=== PATIENT | male | born 1960 | race Caucasian/White ===

== ENCOUNTER 2017-04-23 15:27 | Emergency (ER) | payer SELFPAY ==
[~2017-04-23] VITALS: Ht 193 cm; Wt 150.0 kg
[~2017-04-23 15:27] MED LIST: LISI-363 PO
[2017-04-23 15:31] VITALS: BP 186/109; PULSE 112; RESP 24; TEMP 97.8; O2SAT 97
[2017-04-23] MEDS ORDERED: SODIUM CHLOR 0.9% 1000 ML INJ 1,000 ML IV SCH (16:00)
[2017-04-23] MEDS ORDERED: MORPHINE SULFATE 4 MG/ML INJ IV ONE (16:00)
[2017-04-23] MEDS ORDERED: ONDANSETRON HCL 4 MG/2 ML VIAL IVP ONE (16:00)
[2017-04-23] MEDS ORDERED: SODIUM CHLORIDE 0.9% FLUSH 10 ML FLUSH IVF PRN (16:00)
--- NOTE | 2017-04-23 16:16 | PD ---
HPI Chief Complaint: Fall Time Seen by Provider: 15:54 Travel History International Travel<30 days: No Contact w/Intl Traveler<30days: No Traveled to known affect area: No History of Present Illness HPI The patient is a 57-year-old male who presents to the emergency department after a fall. The patient states he fell this morning approximately 6 AM through a wooden walking apparatus that apparently was covering some type of hole. The patient fell in a hole, he estimates it to be 6 feet deep. The patient was able to crawl out of the hole this morning and went back to investigate later, thinks it was approximate 6 feet deep. The patient complains of a large abrasion to the right flank, anterior right abdominal pain , bruising over the right hip and lower back. He denies any loss of consciousness during the fall and denies any head injury, headache, neck pain, chest pain, or shortness of breath. The pain is worse with walking and with movement. Symptoms are moderate, exacerbated after falling, and there are no current alleviating factors. The patient states his tetanus shot is up-to-date. [facility] Past Medical History Anxiety: Yes Diminished Hearing: No Hypertension: Yes Past Surgical History Other Surgery: Yes (hernia) Social History Alcohol Use: Yes (1/2 gallon vodka daily) Tobacco Use: No Substance Use: No Allergies-Medications (Allergen,Severity, Reaction): Coded Allergies: penicillin G (Unverified Allergy, Severe, Hives, 03/30/17) fever hydrocodone (Unverified Allergy, Intermediate, Itching, 03/30/17) tachycardia Reported Meds & Prescriptions Reported Meds & Active Scripts Active Reported Lisinopril 20 mg (Lisinopril) 20 Mg Tab 1 Tab PO DAILY Review of Systems Except as stated in HPI: all other systems reviewed are Neg General / Constitutional: No: Fever HENT: No: Headaches, Neck Pain Cardiovascular: No: Chest Pain or Discomfort Respiratory: No: Shortness of Breath Gastrointestinal: Positive: Abdominal Pain, No: Nausea, Vomiting Musculoskeletal: Positive: Limited ROM, Pain Neurologic: No: Change in Mentation Physical Exam Narrative GENERAL: Awake, alert, pleasant 57-year-old male who appears his stated age and is in no acute respiratory distress. SKIN: Focused skin assessment warm/dry. HEAD: Atraumatic. Normocephalic. EYES: Pupils equal and round. No scleral icterus. No injection or drainage. ENT: No nasal bleeding or discharge. Mucous membranes pink and moist. NECK: Trachea midline. No JVD. No tenderness of the cervical vertebrae. CARDIOVASCULAR: Regular rate and rhythm. No murmur appreciated. RESPIRATORY: No accessory muscle use. Clear to auscultation. Breath sounds equal bilaterally. GASTROINTESTINAL: Abdomen soft, tender to palpation of the anterior abdominal wall and right upper quadrant as well as abrasions noted over the lateral right flank which are tender to palpation. MUSCULOSKELETAL: Ecchymosis noted over the lateral right hip and buttock. Patient is able flex the hips and knees bilaterally. Full range of motion of upper extremities. Back: No tenderness over the thoracic or lumbar vertebrae, tenderness of the right sacroiliac and right gluteal region. NEUROLOGICAL: Awake and alert. No obvious cranial nerve deficits. Motor grossly within normal limits. Normal speech. Nonfocal. PSYCHIATRIC: Appropriate mood and affect; insight and judgment normal. Data Data Last Documented VS Vital Signs Date Time Temp Pulse Resp B/P (MAP) Pulse Ox O2 Delivery O2 Flow Rate FiO2 04/23/17 15:31 97.8 112 24 186/109 (134) 97 Room Air Orders Orders Complete Blood Count With Diff (04/23/17 16:00) Urinalysis - C+S If Indicated (04/23/17 16:00) Chest, Single Ap (04/23/17 16:00) Pelvis, Ap Only (Routine) (04/23/17 16:00) Ct Abd/Pel W Iv Contrast(Rout) (04/23/17 16:00) Iv Access Insert/Monitor (04/23/17 16:00) Ecg Monitoring (04/23/17 16:00) Oximetry (04/23/17 16:00) Oxygen Administration (04/23/17 16:00) Morphine Inj (Morphine Inj) (04/23/17 16:00) Ondansetron Inj (Zofran Inj) (04/23/17 16:00) Sodium Chloride 0.9% Flush (Ns Flush) (04/23/17 16:00) Comprehensive Metabolic Panel (04/23/17 16:00) Sodium Chlor 0.9% 1000 Ml Inj (Ns 1000 M (04/23/17 16:00) Labs Laboratory Tests Test 04/23/17 16:10 White Blood Count 8.0 TH/MM3 Red Blood Count 3.94 MIL/MM3 Hemoglobin 13.9 GM/DL Hematocrit 40.0 % Mean Corpuscular Volume 101.7 FL Mean Corpuscular Hemoglobin 35.3 PG Mean Corpuscular Hemoglobin Concent 34.7 % Red Cell Distribution Width 17.3 % Platelet Count 193 TH/MM3 Mean Platelet Volume 6.9 FL Neutrophils (%) (Auto) 67.6 % Lymphocytes (%) (Auto) 16.7 % Monocytes (%) (Auto) 9.2 % Eosinophils (%) (Auto) 5.2 % Basophils (%) (Auto) 1.3 % Neutrophils # (Auto) 5.4 TH/MM3 Lymphocytes # (Auto) 1.3 TH/MM3 Monocytes # (Auto) 0.7 TH/MM3 Eosinophils # (Auto) 0.4 TH/MM3 Basophils # (Auto) 0.1 TH/MM3 CBC Comment DIFF FINAL Differential Comment Urine Color YELLOW Urine Turbidity CLEAR Urine pH 6.5 Urine Specific [place] 1.014 Urine Protein TRACE mg/dL Urine Glucose (UA) NEG mg/dL Urine Ketones NEG mg/dL Urine Occult Blood NEG Urine Nitrite NEG Urine Bilirubin NEG Urine Urobilinogen 2.0 MG/DL Urine Leukocyte Esterase NEG Urine RBC LESS THAN 1 /hpf Urine WBC 1 /hpf Urine Squamous Epithelial Cells <1 /hpf Urine Mucus FEW /lpf Microscopic Urinalysis Comment CULT NOT INDICATED MDM Medical Decision Making Medical Screen Exam Complete: Yes Emergency Medical Condition: Yes Medical Record Reviewed: Yes Differential Diagnosis Differential diagnosis includes fracture, contusion, hematoma, hepatic injury, mechanical fall, pelvic fracture, pelvic fracture, abrasion. Narrative Course IV was established, labs are drawn and sent, and the patient was placed on cardiac telemetry monitoring and continuous pulse oximetry monitoring. Chest x- ray and pelvis x-ray were obtained. CT of the abdomen and pelvis with IV contrast was ordered. The patient was administered morphine, Zofran, and IV fluids. The patient was signed out to the oncoming physician at 5 PM, Dr. Lucas. Condition: Stable Juventino Abernathy MD Apr 23, 2017 16:15
[2017-04-23 16:36] LABS: AUTOMATED NEUTROPHIL # 5.4 TH/MM3 (1.8-7.7); BASOPHIL # 0.1 TH/MM3 (0-0.2); BASOPHIL % 1.3 % (0.0-2.0); EOSINOPHIL # 0.4 TH/MM3 (0-0.4); EOSINOPHIL % 5.2 % (0.0-4.0); HEMO FLAGS DIFF FINAL; LYMPH % 16.7 % (9.0-44.0); LYMPHOCYTE # 1.3 TH/MM3 (1.0-4.8); MEAN CELL VOLUME 101.7 FL (80.0-100.0); MEAN CORPUSCULAR HEMOGLOBIN 35.3 PG (27.0-34.0); MEAN CORPUSCULAR HGB CONC 34.7 % (32.0-36.0); MONO % 9.2 % (0.0-8.0); NEUT % 67.6 % (16.0-70.0); PLATELET COUNT 193 TH/MM3 (150-450); RED BLOOD COUNT 3.94 MIL/MM3 (4.50-5.90); RED CELL DISTRIBUTION WIDTH 17.3 % (11.6-17.2)
[2017-04-23 16:37] LABS: BLOOD, URINE NEG (NEG); GLUCOSE,URINE NEG (NEG); KETONE, URINE NEG (NEG); MUCUS URINE FEW /lpf (OCC); NITRITE,URINE NEG (NEG); PH, URINE 6.5 (5.0-8.5); SQUAMOUS EPITHELIAL CELL URINE <1 /hpf (0-5); URINE COLOR YELLOW (YELLW/STRAW)
[2017-04-23 16:38] LABS: COMMENT (UR) CULT NOT INDICATED; CULTURE IF INDICATED CULT NOT INDICATED
[2017-04-23 16:40] VITALS: O2SAT 100
[2017-04-23 16:59] LABS: ALKALINE PHOSPHATASE 115 U/L (45-117); ALT (GPT) 196 U/L (12-78); ANION GAP 13 MEQ/L (5-15); AST (GOT) 242 U/L (15-37); BICARBONATE 23.9 MEQ/L (21.0-32.0); BLOOD UREA NITROGEN 9 MG/DL (7-18); CHLORIDE 100 MEQ/L (98-107); GLOMERULAR FILTRATION RATE 64 ML/MIN (>89); SODIUM (NA) 137 MEQ/L (136-145); TOTAL BILIRUBIN ADULT 1.5 MG/DL (0.2-1.0)
--- NOTE | 2017-04-23 17:00 | RADRPT ---
EXAM DATE/TIME: 04/23/2017 16:38 [facility] COMPARISON: No previous studies available for comparison. INDICATIONS : Chest pain after fall today. MEDICAL HISTORY : Hypertension. SURGICAL HISTORY : None. ENCOUNTER: Initial ACUITY: 1 day PAIN SCORE: 5/10 LOCATION: Bilateral chest FINDINGS: Single AP view of the chest. The lungs are clear. Cardiomediastinal silhouette within normal limits. No evidence of pleural effusion or pneumothorax. CONCLUSION: No acute cardiopulmonary disease identified. Jose Arana MD on April 23, 2017 at 16:57 Board Certified Radiologist. This report was verified electronically.
--- NOTE | 2017-04-23 17:01 | RADRPT ---
EXAM DATE/TIME: 04/23/2017 16:42 [facility] COMPARISON: No previous studies available for comparison. INDICATIONS : Hip pain after fall today. MEDICAL HISTORY : None. SURGICAL HISTORY : None. ENCOUNTER: Initial ACUITY: 1 day PAIN SCORE: 10/10 LOCATION: Bilateral pelvis. FINDINGS: Single AP view of the pelvis. Small osteophytes of the hips. Bone alignment within normal limits. No evidence of fracture. CONCLUSION: No evidence of fracture. Jose Arana MD on April 23, 2017 at 16:58 Board Certified Radiologist. This report was verified electronically.
[2017-04-23 17:27] LABS: POTASSIUM 2.9 MEQ/L (3.5-5.1)
[2017-04-23] MEDS ORDERED: POTASSIUM CHLORIDE 20 MEQ CONTROLLED RELEASE TAB PO ONE (18:00)
[2017-04-23] MEDS ORDERED: IOHEXOL 350 MG/ML 10 ML VIAL (for RAD DIAG) IVCONTRAST ONE (18:10)
--- NOTE | 2017-04-23 18:25 | PD ---
Data Data Last Documented VS Vital Signs Date Time Temp Pulse Resp B/P (MAP) Pulse Ox O2 Delivery O2 Flow Rate FiO2 04/23/17 18:52 04/23/17 16:40 100 04/23/17 15:31 97.8 112 24 Room Air Orders Orders Complete Blood Count With Diff (04/23/17 16:00) Urinalysis - C+S If Indicated (04/23/17 16:00) Chest, Single Ap (04/23/17 16:00) Pelvis, Ap Only (Routine) (04/23/17 16:00) Ct Abd/Pel W Iv Contrast(Rout) (04/23/17 16:00) Iv Access Insert/Monitor (04/23/17 16:00) Ecg Monitoring (04/23/17 16:00) Oximetry (04/23/17 16:00) Oxygen Administration (04/23/17 16:00) Morphine Inj (Morphine Inj) (04/23/17 16:00) Ondansetron Inj (Zofran Inj) (04/23/17 16:00) Sodium Chloride 0.9% Flush (Ns Flush) (04/23/17 16:00) Comprehensive Metabolic Panel (04/23/17 16:00) Sodium Chlor 0.9% 1000 Ml Inj (Ns 1000 M (04/23/17 16:00) Potassium Chloride (Kcl) (04/23/17 18:00) Iohexol 350 Inj (Omnipaque 350 Inj) (04/23/17 18:10) Labs Laboratory Tests Test 04/23/17 16:10 White Blood Count 8.0 TH/MM3 Red Blood Count 3.94 MIL/MM3 Hemoglobin 13.9 GM/DL Hematocrit 40.0 % Mean Corpuscular Volume 101.7 FL Mean Corpuscular Hemoglobin 35.3 PG Mean Corpuscular Hemoglobin Concent 34.7 % Red Cell Distribution Width 17.3 % Platelet Count 193 TH/MM3 Mean Platelet Volume 6.9 FL Neutrophils (%) (Auto) 67.6 % Lymphocytes (%) (Auto) 16.7 % Monocytes (%) (Auto) 9.2 % Eosinophils (%) (Auto) 5.2 % Basophils (%) (Auto) 1.3 % Neutrophils # (Auto) 5.4 TH/MM3 Lymphocytes # (Auto) 1.3 TH/MM3 Monocytes # (Auto) 0.7 TH/MM3 Eosinophils # (Auto) 0.4 TH/MM3 Basophils # (Auto) 0.1 TH/MM3 CBC Comment DIFF FINAL Differential Comment Urine Color YELLOW Urine Turbidity CLEAR Urine pH 6.5 Urine Specific Orange 1.014 Urine Protein TRACE mg/dL Urine Glucose (UA) NEG mg/dL Urine Ketones NEG mg/dL Urine Occult Blood NEG Urine Nitrite NEG Urine Bilirubin NEG Urine Urobilinogen 2.0 MG/DL Urine Leukocyte Esterase NEG Urine RBC LESS THAN 1 /hpf Urine WBC 1 /hpf Urine Squamous Epithelial Cells <1 /hpf Urine Mucus FEW /lpf Microscopic Urinalysis Comment CULT NOT INDICATED Blood Urea Nitrogen 9 MG/DL Creatinine 1.17 MG/DL Random Glucose 124 MG/DL Total Protein 7.6 GM/DL Albumin 3.1 GM/DL Calcium Level 8.5 MG/DL Alkaline Phosphatase 115 U/L Aspartate Amino Transf (AST/SGOT) 242 U/L Alanine Aminotransferase (ALT/SGPT) 196 U/L Total Bilirubin 1.5 MG/DL Sodium Level 137 MEQ/L Potassium Level 2.9 MEQ/L Chloride Level 100 MEQ/L Carbon Dioxide Level 23.9 MEQ/L Anion Gap 13 MEQ/L Estimat Glomerular Filtration Rate 64 ML/MIN [facility] Medical Record Reviewed: Yes Supervised Visit with NASRIN: No Narrative Course CBC & BMP Diagram 04/23/17 16:10 Total Protein 7.6, Albumin 3.1 L, Calcium Level 8.5, Alkaline Phosphatase 115, Aspartate Amino Transf (AST/SGOT) 242 H, Alanine Aminotransferase (ALT/SGPT) 196 H, Total Bilirubin 1.5 H UA: no UTI, no hematuria CXR: No traumatic injury PXR: No traumatic injury Last 24 hours Impressions Pelvis X-Ray 04/23/17 1600 Signed Impressions: Service Date/Time: Sunday, April 23, 2017 16:42 - CONCLUSION: No evidence of fracture. Jose Arana MD Chest X-Ray 04/23/17 1600 Signed Impressions: Service Date/Time: Sunday, April 23, 2017 16:38 - CONCLUSION: No acute cardiopulmonary disease identified. Jose Arana MD Abdomen/Pelvis CT 04/23/17 1600 Signed Impressions: Service Date/Time: Sunday, April 23, 2017 17:52 - CONCLUSION: 1. Severe hepatic steatosis. 2. Colonic diverticulosis. 3. No acute findings identified. Jose Arana MD Please refer to outgoing provider documentation. Pt found resting comfortably at time of reassessment. No evidence intraabdominal trauma. Transaminitis c/w fatty and alcoholic steatohepatitis. Diet and lifestyle modification discussed. Oral potassium provided. Diagnosis Primary Impression: Steatohepatitis Additional Impressions: Fall Qualified Codes: W19.XXXA - Unspecified fall, initial encounter Hypokalemia Referrals: Primary Care Physician 2 days Additional Instruction: You have a choice when it comes to health care, and we are glad that you chose [facility]. Hopefully, we have met your expectations on today's visit. You are welcome to return to [facility] at any time, as we are committed to meeting the health care needs of our community. Med/Other Pt SpecificInfo: No Change to Meds Disposition: 01 DISCHARGE HOME Condition: Stable Justen Lucas MD Apr 23, 2017 18:25
--- NOTE | 2017-04-23 18:26 | RADRPT ---
EXAM DATE/TIME: 04/23/2017 17:52 [facility] COMPARISON: No previous studies available for comparison. INDICATIONS : Abdominal pain after falling. IV CONTRAST: 97 cc Omnipaque 350 (iohexol) IV ORAL CONTRAST: No oral contrast ingested. RADIATION DOSE: 16.92 CTDIvol (mGy) MEDICAL HISTORY : Hypertension. ETOH abuse SURGICAL HISTORY : None. ENCOUNTER: Initial ACUITY: 1 day PAIN SCALE: 6/10 LOCATION: cranial TECHNIQUE: Volumetric scanning of the abdomen and pelvis was performed. Using automated exposure control and ad justment of the mA and/or kV according to patient size, radiation dose was kept as low as reasonably achievable to obtain optimal diagnostic quality images. DICOM format image data is available electro nically for review and comparison. FINDINGS: LOWER LUNGS: The visualized lower lungs are clear. LIVER: Severe diffuse hypodensity of the liver indicating hepatic steatosis. No focal mass identified. Gallb ladder is collapsed. No pericholecystic inflammatory changes. SPLEEN: Mild splenomegaly measuring 13.6 cm in craniocaudal dimension. PANCREAS: Within normal limits. KIDNEYS: Normal in size and shape. There is no mass, stone or hydronephrosis. ADRENAL GLANDS: Within normal limits. VASCULAR: There is no aortic aneurysm. BOWEL/MESENTERY: Numerous colonic diverticula, concentrated in the sigmoid region. No inflammatory changes to suggest acute diverticulitis. No bowel dilatation. No focal bowel wall thickening. No free air or free fluid. Appendix is within normal limits. ABDOMINAL WALL: Within normal limits. RETROPERITONEUM: There is no lymphadenopathy. BLADDER: No wall thickening or mass. REPRODUCTIVE: Within normal limits. INGUINAL: There is no lymphadenopathy or hernia. MUSCULOSKELETAL: Prominent degenerative findings the lumbar spine and sacroiliac joints. Prominent osteoarthritic find ings the right hip. Bone alignment is within normal limits. No evidence of fracture. CONCLUSION: 1. Severe hepatic steatosis. 2. Colonic diverticulosis. 3. No acute findings identified. Jose Arana MD on April 23, 2017 at 18:17 Board Certified Radiologist. This report was verified electronically.
== END 2017-04-23 18:55 | disposition home or self-care (01) ==
LOC: NEPD 15:27
DX: K75.81 Nonalcoholic steatohepatitis (NASH) (principal); E87.6 Hypokalemia; R74.0 Nonspecific elevation of levels of transaminase and lactic acid dehydrogenase [LDH]; K57.30 Diverticulosis of large intestine without perforation or abscess without bleeding; S70.01XA Contusion of right hip, initial encounter; S30.0XXA Contusion of lower back and pelvis, initial encounter; S30.811A Abrasion of abdominal wall, initial encounter; S70.211A Abrasion, right hip, initial encounter; W17.2XXA Fall into hole, initial encounter
CPT/HCPCS: 71010; 72170; 74177; 80053; 81001; 85025; 96374; 96375; 99285; J2270; J2405; J7030; Q9967